=== PATIENT | female | born 1960 | race Caucasian/White ===

== ENCOUNTER 2021-03-16 10:19 | Outpatient (REF) | payer OTHER, SELFPAY ==
[2021-03-16 13:44] LABS: MANUAL DIFF FLAG NO
[2021-03-16 13:56] LABS: Basophils Percent Auto 0.5 % (0-2); Eosinophils Percent Auto 0.5 % (0-4); Hematocrit 38.3 % (37-47); Hemoglobin 11.7 g/dl (12.0-16.0); Imm Gran Abs Auto 0.01 X10*3/uL (0.00-0.03); Imm Gran Pct Auto 0.2 % (0.0-0.4); Lymphocytes Absolute Auto 2.4 X10*3/uL (1.2-4.9); Lymphocytes Percent Auto 37.9 % (20-40); Mean Corpuscular HGB Conc 30.5 g/dl (31.0-35.0); Mean Corpuscular Hemoglobin 25.3 pg (27.0-33.0); Mean Corpuscular Volume 82.9 fL (80-98); Monocytes Absolute Auto 0.5 X10*3/uL (0.1-1.2); Monocytes Percent Auto 7.1 % (2-11); Neutrophils Absolute Auto 3.4 X10*3/uL (2.0-8.3); Neutrophils Percent Auto 53.8 % (45-73); Platelet Count 226 X10*3/uL (160-400); Red Blood Count 4.62 X10*6/uL (4.20-5.50); Red Cell Distribution Width 13.2 % (11.0-16.0); White Blood Count 6.3 X10*3/uL (4.8-10.8)
[2021-03-16 14:09] LABS: Cholesterol 186 mg/dL; HDL Cholesterol 81 mg/dL; LDL Cholesterol Calculated 99 mg/dl; Triglycerides 33 mg/dL
[2021-03-16 14:29] LABS: Thyroid Stimulating Hormone 0.97 uIU/mL (0.32-4.0)
== END 2021-03-16 10:20 | disposition home or self-care (01) ==
LOC: HO.10HDL 10:19
PROVIDERS: Visit Provider Internal Medicine
DX: E03.9 Hypothyroidism, unspecified (principal); E78.00 Pure hypercholesterolemia, unspecified; G57.11 Meralgia paresthetica, right lower limb; K92.1 Melena
CPT/HCPCS: 36415; 80061; 84443; 85025

== ENCOUNTER 2021-12-06 10:02 | Outpatient (REF) | payer OTHER, SELFPAY ==
[2021-12-06 11:02] LABS: MANUAL DIFF FLAG NO
[2021-12-06 11:05] LABS: Basophils Percent Auto 0.5 % (0-2); Eosinophils Absolute Auto 0.1 X10*3/uL (0.0-0.4); Eosinophils Percent Auto 1.2 % (0-4); Hematocrit 36.6 % (37.0-47.0); Hemoglobin 11.3 g/dl (12.0-16.0); Imm Gran Abs Auto 0.01 X10*3/uL (0.00-0.03); Imm Gran Pct Auto 0.2 % (0.0-0.4); Lymphocytes Absolute Auto 2.2 X10*3/uL (1.2-4.9); Lymphocytes Percent Auto 38.9 % (20-40); Mean Corpuscular HGB Conc 30.9 g/dl (31.0-35.0); Mean Corpuscular Hemoglobin 25.8 pg (27.0-33.0); Mean Corpuscular Volume 83.6 fL (80.0-98.0); Mean Platelet Volume 10.4 fL (9.4-12.3); Monocytes Absolute Auto 0.4 X10*3/uL (0.1-1.2); Monocytes Percent Auto 6.6 % (2-11); Neutrophils Percent Auto 52.6 % (45-73); Platelet Count 230 X10*3/uL (160-400); Red Blood Count 4.38 X10*6/uL (4.20-5.50); Red Cell Distribution Width 13.2 % (11.0-16.0); White Blood Count 5.6 X10*3/uL (4.8-10.8)
[2021-12-06 11:25] LABS: Alanine Aminotransferase 12 U/L (0-31); Albumin Level 4.2 g/dL (3.5-5.0); Alkaline Phosphatase 75 U/L (39-117); Anion Gap 11 (12-20); Aspartate Amino Transferase 19 U/L (5-31); Bilirubin Total 0.2 mg/dL (0.0-1.0); Blood Urea Nitrogen 16 mg/dL (9-16); Calcium 9.2 mg/dL (8.4-10.2); Carbon Dioxide 26 mmol/L (22-29); Chloride 108 mmol/L (96-108); Cholesterol 254 mg/dL; Estimated Glomerular Filt Rate 57; Glucose Fasting 106 mg/dL (60-99); HDL Cholesterol 78 mg/dL; LDL Cholesterol Calculated 160 mg/dl; Potassium 4.5 mmol/L (3.3-5.1); Sodium 140 mmol/L (135-145); Triglycerides 80 mg/dL
[2021-12-06 11:49] LABS: Thyroid Stimulating Hormone 1.33 uIU/mL (0.32-4.0)
== END 2021-12-06 10:03 | disposition home or self-care (01) ==
LOC: HO.10HDL 10:02
PROVIDERS: Visit Provider Internal Medicine
DX: Z00.00 Encounter for general adult medical examination without abnormal findings (principal); E03.9 Hypothyroidism, unspecified; I10 Essential (primary) hypertension; J30.89 Other allergic rhinitis
CPT/HCPCS: 36415; 80053; 80061; 84443; 85025

== ENCOUNTER 2022-06-17 15:34 | Outpatient (REF) | payer OTHER, SELFPAY | END 2022-06-17 15:35 | disposition home or self-care (01) | LOC: HO.SH 15:34 | PROVIDERS: Visit Provider Internal Medicine | DX: Z01.118 Encounter for examination of ears and hearing with other abnormal findings (principal); H90.3 Sensorineural hearing loss, bilateral | CPT/HCPCS: 92557 ==

== ENCOUNTER 2023-02-20 12:08 | Outpatient (AMB) | payer OTHER, SELFPAY ==
--- NOTE | 2023-02-20 12:09 | A.OFFVIS_ITS ---
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 States her left knee is worse and has had chronic pain for her right knee for the last 7 years. States pain started about 2 weeks ago no injury she can recall. States currently she is not able to bend her knee during pryers. Pain is mainly in her lateral aspect of knee. At times feels like her knee is out of place. Denies numbness or tingling in toes. States she had an MRI done at [facility] about 1 week ago. 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 She complaints of pain with daily activity, worse with bending her knee, and feels her knee is out of place at times. She says she is unable to bend her knee without pain in order to pray and she is unable to sit on the floor or attend the gym. She says she is very active with her exercise and is frustrated that she is limited by her pain. She reports having pain in her right knee for ~7 years now, but says her left knee pain is worse now. She denies any numbness or tingling. 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 Review of Systems Const All systems reviewed & are unremarkable except as noted in HPI and below Physical Exam Vital Signs: BMI result Body Mass Index 29.2 Const General: no acute distress, alert and awake Orientation/consciousness: patient oriented x3 HEENT Head: Yes normocephalic and Yes atraumatic Eyes EOM: EOMs intact bilaterally Resp Effort & Inspection: normal respiratory effort and able to speak in complete sentences Cardio Jugular venous distension: no JVD Skin General skin exam: turgor normal Rashes: no rashes Neuro General: patient oriented x3 Extrem Other: Left Knee: Lateral PF TTP bilaterally Psych Appearance: grossly normal Affect: normal affect Attitude: cooperative Results Reviewed Results Reviewed: I personally reviewed relevant radiographs. Severe left knee PF OA Moderate right knee PF OA Assessment & Plan Assessment & Plan (1) Osteoarthritis of left knee: Code(s): M17.12 - Unilateral primary osteoarthritis, left knee Plan: This is a 62 year old woman with severe left knee PF OA. She has pain with daily activity, worse with ambulation, kneeling, or deep flexion. She denies any prior treatment. I discussed her diagnosis and treatment options. I recommend rest, icing, NSAIDs, and she continue activity as tolerated. She should be mindful to not push through pain, I recommend she use a stationary bicycle for her exercise if ambulation causes her pain. if her symptoms persist or worsen in the next month she can follow up to discuss a possible injection. (2) Osteoarthritis of right knee: Code(s): M17.11 - Unilateral primary osteoarthritis, right knee Plan: [ ] right knee PF OA. She has pain with activity and denies any prior treatment. Her left knee is more painful. I recommend NSAIDs and activity modification. Plan Scribed for Steve Larkin MD by Prateek Tinoco, electromedical service engineer, on 02/20/23 at 12:50 PM, EST. Orders: Orders XR knee standing BI 02/20/23 M25.569 - Pain in unspecified knee XR knee LT 2V 02/20/23 M25.569 - Pain in unspecified knee XR knee RT 2V 02/20/23 M25.569 - Pain in unspecified knee Coding Level of Care Code New Pt Level 4 (54103) Diagnoses Osteoarthritis of left knee M17.12 Osteoarthritis of right knee M17.11
[2023-02-20 12:41] VITALS: BMI 29.2
== END 2023-02-20 13:06 | disposition home or self-care (01) ==
PROVIDERS: Visit Provider Orthopaedic Surgery
DX: M17.0 Bilateral primary osteoarthritis of knee (principal)
CPT/HCPCS: 99203

== ENCOUNTER 2023-02-20 12:08 | Outpatient (REF) | payer OTHER, SELFPAY | END 2023-02-20 12:09 | disposition home or self-care (01) | LOC: HO.HOSX 12:08 | PROVIDERS: Visit Provider Orthopaedic Surgery | DX: M17.0 Bilateral primary osteoarthritis of knee (principal) | CPT/HCPCS: 73560; 73565 ==

== ENCOUNTER 2024-01-02 15:04 | Outpatient (REF) | payer OTHER, SELFPAY ==
--- NOTE | ~2024-01-02 | XR_ITS ---
EXAMINATION: XR HIP, RIGHT CLINICAL INFORMATION: Pain in hip and knee for 2 to 3 weeks. COMPARISON: None available. TECHNIQUE: Two views of the right hip. FINDINGS: Right hip alignment maintained. Mild degenerative changes with joint space narrowing and hypertrophic change. XR/XR hip RT min 2V IMPRESSION: Mild degenerative changes in the right hip. Electronically signed by: Connie Tuttle MD 01/31/2024 07:27 AM EDT
--- NOTE | ~2024-01-02 | XR_ITS ---
EXAMINATION: XR KNEE, RIGHT CLINICAL INFORMATION: Pain right hip and knee, no known injury. COMPARISON: None available. TECHNIQUE: Four views of the right knee. FINDINGS: Mild narrowing of the medial compartment. Small tricompartmental osteophytes. No significant joint effusion. Narrowing of the patellofemoral compartment. Ossicle overlying the anterior central aspect of the tibia, possibly a loose body. Narrowing of the medial compartment. XR/XR knee RT 4V IMPRESSION: Mild degenerative changes. Electronically signed by: Connie Tuttle MD 01/31/2024 07:26 AM EDT
== END 2024-01-02 15:05 | disposition home or self-care (01) ==
LOC: HO.XRAY 15:04
PROVIDERS: PCP Internal Medicine; Visit Provider Internal Medicine
DX: M16.11 Unilateral primary osteoarthritis, right hip (principal); M17.11 Unilateral primary osteoarthritis, right knee
CPT/HCPCS: 73502; 73564